=== PATIENT | male | born 1935 | race Caucasian/White ===

== ENCOUNTER → 2016-04-21 | Outpatient (CLI) | payer OTHER ==
[~2016-04-21] MED LIST: CALC-459 PO; CALC625T PO; DUTACAP PO; LATA0.5S OPB; METO50TA16 PO; MIRT1TAB27 PO; POLYSOL4 OPB; PYRI100T4 PO; SIMV1POW PO
[2016-04-21 10:11] LABS: HEMATOCRIT 42.9 % (42-52); MEAN CELL VOLUME 92.7 fL (80-100); MEAN CORPUSCULAR HEMOGLOBIN 30.7 pg (25-34); MEAN CORPUSCULAR HGB CONC 33.1 g/dl (32-36); MEAN PLATELET VOLUME 9.9 fL (7.4-10.4); PLATELET COUNT 224 K/uL (130-400); RED BLOOD COUNT 4.63 M/uL (4.7-6.1); WHITE BLOOD COUNT 6.64 K/uL (4.8-10.8)
[2016-04-21 10:25] LABS: BLOOD UREA NITROGEN 21 mg/dl (7-18); BUN/CREATININE RATIO 19.3 (10-20); CALCIUM 8.4 mg/dl (8.5-10.1); CARBON DIOXIDE 29 mmol/L (21-32); CHLORIDE 107 mmol/L (98-107); GLUCOSE 80 mg/dl (70-99); POTASSIUM 4.2 mmol/L (3.5-5.1); SODIUM 143 mmol/L (136-145)
== END | disposition home or self-care (01) ==
LOC: C.LABFOXMH 09:23
PROVIDERS: ATTEND Internal Medicine
DX: N18.3 Chronic kidney disease, stage 3 (moderate) (principal)

== ENCOUNTER → 2016-08-22 | Outpatient (CLI) | payer OTHER ==
[~2016-08-22] MED LIST changes: +ASPCH81X PO; +CALC625T13 PO; +DUTA0.5C PO; +METO25TA56 PO; +MIRT15TA2 PO; +SENNA PO; +SIMV10TA2 PO; +TAMS0.4C38 PO; +TIMO0.5S2 OPB
[2016-08-22 09:04] LABS: BLOOD UREA NITROGEN 19 mg/dl (7-18); BUN/CREATININE RATIO 15.8 (10-20); CARBON DIOXIDE 30 mmol/L (21-32); CHLORIDE 109 mmol/L (98-107); GLUCOSE 86 mg/dl (70-99); POTASSIUM 4.5 mmol/L (3.5-5.1); SODIUM 145 mmol/L (136-145)
[2016-08-22 09:30] LABS: CALCIUM 8.4 mg/dl (8.5-10.1)
== END | disposition home or self-care (01) ==
LOC: C.LABFOXMH 08:18
PROVIDERS: ATTEND Internal Medicine
DX: I10 Essential (primary) hypertension (principal)

== ENCOUNTER → 2016-12-24 | Outpatient (CLI) | payer OTHER ==
[~2016-12-24] MED LIST changes: -ASPCH81X PO; -CALC625T13 PO; -DUTA0.5C PO; -METO25TA56 PO; -MIRT15TA2 PO; -SENNA PO; -SIMV10TA2 PO; -TAMS0.4C38 PO; -TIMO0.5S2 OPB
[2016-12-24 09:57] LABS: HEMATOCRIT 39.3 % (42-52); MEAN CELL VOLUME 93.6 fL (80-100); MEAN CORPUSCULAR HEMOGLOBIN 31.4 pg (25-34); MEAN CORPUSCULAR HGB CONC 33.6 g/dl (32-36); MEAN PLATELET VOLUME 9.8 fL (7.4-10.4); PLATELET COUNT 218 K/uL (130-400)
[2016-12-24 10:05] LABS: BLOOD UREA NITROGEN 19 mg/dl (7-18); BUN/CREATININE RATIO 19.2 (10-20); CALCIUM 8.3 mg/dl (8.5-10.1); CARBON DIOXIDE 30 mmol/L (21-32); CHLORIDE 108 mmol/L (98-107); GLUCOSE 85 mg/dl (70-99); POTASSIUM 4.1 mmol/L (3.5-5.1); SODIUM 142 mmol/L (136-145)
== END | disposition home or self-care (01) ==
LOC: C.LABFOXMH 09:18
PROVIDERS: ATTEND Internal Medicine
DX: N18.3 Chronic kidney disease, stage 3 (moderate) (principal)

== ENCOUNTER → 2017-01-22 | Day surgery (SDC) | payer OTHER ==
[2017-01-07 14:10] VITALS: Ht 179.1 cm; Wt 73.2 kg
[~2017-01-22] VITALS: Ht 179.1 cm; Wt 73.2 kg
[~2017-01-22] MED LIST changes: +ASPCH81X PO; +BRIMONIDINE TARTRATE 0.2% 5ML OP SCH; +BRIMONIDINE TARTRATE 0.2% 5ML OPL SCH; -CALC-459 PO; -CALC625T PO; +CALC625T13 PO; +DUTA0.5C PO; -DUTACAP PO; +METO25TA56 PO; -METO50TA16 PO; +MIRT15TA2 PO; -MIRT1TAB27 PO; +PILOCARPINE HCL 2% OP SOLN 15 ML BTL ONE; +PILOCARPINE HCL 2% OP SOLN 15 ML BTL OPL SCH; +PROPARACAINE 0.5% OP SOLN PER DROP CHARGE OPL SCH; +PrednisoLONE ACET 1% OP SUSP 5 ML BTL OP SCH; +SENNA PO; +SIMV10TA2 PO; -SIMV1POW PO; +TAMS0.4C38 PO; +TIMO0.5S2 OPB
[2017-01-22 11:46] VITALS: BP 144/89; PULSE 71; O2SAT 98
--- NOTE | 2017-01-22 11:50 | Discharge Instructions-[facility] ---
Discharge Instructions Date of Service Jan 22, 2017. Visit Reason for Visit: Glaucoma Left Eye Discharge Discharge Diagnosis / Problem: glaucoma Discharge Goals Goal(s): Improve disease control Activity Recommendations Activity Limitations: resume your previous activity Anesthesia . Post Anesthesia Instructions: If you have had General Anesthesia or IV Sedation: * Do not drive today. * Resume driving when surgeon permits. * Do not make important decisions or sign legal documents today. * Call surgeon for: 1. Temperature elevations greater than 101 degrees F. 2. Uncontrollable pain. 3. Excessive bleeding. 4. Persistent nausea and vomiting. 5. Medication intolerance (nausea, vomiting or rash). * For nausea and vomiting use only clear liquids such as: tea, soda, bouillon until nausea subsides, then gradually increase diet as tolerated. * If you have any concerns or questions, call your surgeon's office. If physician is unavailable and it is an emergency, call 911 or go to the nearest emergency room. . Instructions / Follow-Up Instructions / Follow-Up ACTIVITY RECOMMENDATIONS: * No limitations RETURN TO SCHOOL/WORK: * No limitations DIET: * No limitations MEDICATIONS: Resume previous medications unless instructed otherwise by your surgeon. * Please use Prednisolone acetate drops prescription given to you at your office appointment as follows: 1 drop in effected eye 4 times a day for 5 days. * Continue all glaucoma drops as usual with no interruption to either eye. SPECIAL CARE INSTRUCTIONS: Call your doctor at with any concerns or problems. FOLLOW UP VISIT: Follow-up with Dr Perez in 1 hour. Diet Recommendations Home Diet: resume previous diet Pending Studies Studies pending at discharge: no Medical Emergencies . Who to Call and When: Medical Emergencies: If at any time you feel your situation is an emergency, please call 911 immediately. . Non-Emergent Contact Non-Emergency issues call your: Customer Pricing Manager . . "Provider Documentation" section prepared by Perez Perez. .
--- NOTE | 2017-01-22 11:51 | [facility] Operative Report ---
Operative Report Date of Service Jan 22, 2017. Operative Report Diagnosis: glaucoma, left eye Procedure: SLT, inferior 180 degrees, 58 spots, 1.5 mJ Complications: none I attest to the content of the Intraoperative Record and any orders documented therein. Any exceptions are noted below.
== END | disposition home or self-care (01) ==
LOC: X.SURG 10:32
PROVIDERS: ATTEND Ophthalmology
DX: H40.9 Unspecified glaucoma (principal); Z95.0 Presence of cardiac pacemaker; Z79.01 Long term (current) use of anticoagulants; Z79.899 Other long term (current) drug therapy

== ENCOUNTER 2022-07-09 05:08 | Observation (INO) ==
--- NOTE | 2022-06-18 14:04 | PAT Medication Instructions ---
Medication Instructions Date of Service June 18, 2022 Home Medications Medication Instructions Recorded furosemide 20 mg tablet 20 mg PO DAILY #90 tabs 01/24/21 apixaban 2.5 mg tablet 2.5 mg PO BID #180 tabs 01/14/22 Wheeled Walker #1 ea 06/12/22 dutasteride 0.5 mg capsule 0.5 mg PO QPM latanoprost 0.005 % eye drops 1 drp ophthalmic (eye) QAM pyridoxine (vitamin B6) 100 mg tablet (Vitamin B-6) 100 mg PO QAM sennosides 8.6 mg tablet (senna) 8.6 mg PO TID simvastatin 10 mg tablet 10 mg PO QPM tamsulosin 0.4 mg capsule 0.4 mg PO QAM timolol maleate 0.25 % eye drops 1 drp ophthalmic (eye) BID cholecalciferol (vitamin D3) 25 mcg (1,000 unit) capsule 1,000 unit PO QAM pramipexole 0.25 mg tablet 0.25 mg PO QPM pantoprazole 40 mg tablet,delayed release 40 mg PO QAM furosemide 20 mg tablet 20 mg PO DAILY metoprolol succinate 50 mg tablet,extended release 24 hr 50 mg PO QAM mirtazapine 7.5 mg tablet 15 mg PO HS apixaban 2.5 mg tablet 2.5 mg PO BID meloxicam 7.5 mg tablet 15 mg PO QAM amino acids 1 tab PO UD cyanocobalamin (vitamin B-12) 1,000 mcg/mL injection solution 0 mcg IM Q4WK Continue as directed amino acids 1 tab PO UD ASK your surgeon for instructions meloxicam 7.5 mg tablet 15 mg PO QAM ASK your prescriber and surgeon apixaban 2.5 mg tablet 2.5 mg PO BID (in order for spinal anesthesia, Apixaban needs to be stopped 72 hours/3 days before surgery. Please check if okay with doctor that prescribes this to you) DO NOT take the morning of surgery pyridoxine (vitamin B6) 100 mg tablet (Vitamin B-6) 100 mg PO QAM sennosides 8.6 mg tablet (senna) 8.6 mg PO TID cholecalciferol (vitamin D3) 25 mcg (1,000 unit) capsule 1,000 unit PO QAM furosemide 20 mg tablet 20 mg PO DAILY cyanocobalamin (vitamin B-12) 1,000 mcg/mL injection solution 0 mcg IM Q4WK Take morning of surgery With a small sip of water, OTHERWISE NOTHING TO EAT OR DRINK AFTER MIDNIGHT: latanoprost 0.005 % eye drops 1 drp ophthalmic (eye) QAM tamsulosin 0.4 mg capsule 0.4 mg PO QAM timolol maleate 0.25 % eye drops 1 drp ophthalmic (eye) BID pantoprazole 40 mg tablet,delayed release 40 mg PO QAM metoprolol succinate 50 mg tablet,extended release 24 hr 50 mg PO QAM Take evening before surgery dutasteride 0.5 mg capsule 0.5 mg PO QPM sennosides 8.6 mg tablet (senna) 8.6 mg PO TID simvastatin 10 mg tablet 10 mg PO QPM timolol maleate 0.25 % eye drops 1 drp ophthalmic (eye) BID pramipexole 0.25 mg tablet 0.25 mg PO QPM mirtazapine 7.5 mg tablet 15 mg PO HS Other Notes If you have any questions please call us at [phone] or [phone] or [phone] or [phone]
--- NOTE | 2022-06-24 13:42 | Anesthesiology Consultation ---
Date of Service June 24, 2022 Assessment & Plan (1) Encounter for pre-operative examination: - awaiting cardiology recommended stress echo and clearance. Workload note sent. Also awaiting finalized EP note (currently in draft) and detailed ICD report. - cardiology 02/11/22 [place]: "...Although he had only nonocclusive disease he is on prior catheterizations, these were over a decade ago. Therefore, if he were to proceed with hip replacement surgery, would first obtain dobutamine stress echocardiogram to reassess current LV systolic function and to exclude interim development of any occlusive coronary artery disease..." - ICD Medtr[employer]. - Outpatient joint assessment: Patient is currently scheduled for inpatient pathway. If re-evaluated pending system levels during current pandemic/surgeon requests outpatient pathway, patient is not acceptable candidate for outpatient joint program from anesthesia standpoint. Chart Review Chart Review: Pending: Refer to Additional Notes / Consult section and Patient seen in Pre Admission Testing Teaching & Discussion Pre-Anesthesia Teaching/Discussion Notes: Instructed NPO after midnight before surgery, except medications with 15 cc of water. Medication instructions provided according to the PAT guidelines. History Surgery Operation Date: 07/09/22 09:05 Proposed Procedures p Right Total Hip Arthroplasty - Mao Green MD Height/Weight Height: 5 ft 11 in Weight: 72.575 kg Allergies Allergy/AdvReac Type Severity Reaction Status Date / Time Sulfa (Sulfonamide AdvReac Mild STOMACH Verified 06/18/22 09:18 Antibiotics) UPSET AT AGE 1 Medications Home Medications Medication Instructions Recorded Confirmed Last Taken dutasteride 0.5 mg capsule 0.5 mg PO QPM 01/18/18 06/18/22 01/19/18 07:30 latanoprost 0.005 % eye drops 1 drp ophthalmic (eye) QAM 01/18/18 06/18/22 04/03/21 pyridoxine (vitamin B6) 100 mg 100 mg PO QAM 01/18/18 06/18/22 04/03/21 tablet (Vitamin B-6) sennosides 8.6 mg tablet (senna) 8.6 mg PO TID 01/18/18 06/18/22 01/19/18 07:30 simvastatin 10 mg tablet 10 mg PO QPM 01/18/18 06/18/22 01/19/18 07:30 tamsulosin 0.4 mg capsule 0.4 mg PO QPM 01/18/18 06/24/22 01/19/18 07:30 timolol maleate 0.25 % eye drops 1 drp ophthalmic (eye) BID 01/18/18 06/18/22 01/19/18 07:30 cholecalciferol (vitamin D3) 25 1,000 unit PO QAM 12/30/18 06/18/22 04/03/21 mcg (1,000 unit) capsule pramipexole 0.25 mg tablet 0.25 mg PO QPM 08/09/19 06/18/22 Unknown pantoprazole 40 mg tablet,delayed 40 mg PO QAM 04/02/20 06/18/22 Unknown release furosemide 20 mg tablet 20 mg PO DAILY #90 tabs 01/24/21 06/18/22 Unknown metoprolol succinate 50 mg 50 mg PO QAM 04/03/21 06/18/22 04/03/21 tablet,extended release 24 hr mirtazapine 7.5 mg tablet 15 mg PO HS 08/22/21 06/18/22 Unknown apixaban 2.5 mg tablet 2.5 mg PO BID #180 tabs 01/14/22 06/18/22 Unknown meloxicam 7.5 mg tablet 15 mg PO QAM 02/11/22 06/18/22 Unknown Wheeled Walker #1 ea 06/12/22 06/12/22 Unknown amino acids 1 tab PO UD 06/18/22 06/18/22 Unknown cyanocobalamin (vitamin B-12) 0 mcg IM Q4WK 06/18/22 06/18/22 Unknown 1,000 mcg/mL injection solution lisinopril 5 mg tablet 5 mg PO QAM 06/24/22 06/24/22 Unknown Additional Notes: Pt reported taking lisinopril 5 mg QAM and clarified that tamsulosin is taken in the evening. These were added/adjusted in EMR. He was instructed NOT taking lisinopril day of surgery and to continue tamsulosin like usual. These instructions were also written on provided medication instructions. He verbalized full understanding and agreement, denied questions, concerns or additional medications. 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 Exercise / Class Metabolic Activity III < 4 Walking/Shop/Light housework (ambulates with cane, SOB with usual activities, denies chest discomfort; TELLO ongoing x 7-8 months) Past Family History Family History Family/Other Family history of diabetes mellitus Past Surgical History Surgical History History of appendectomy History of cataract surgery RT/LEFT History of cholecystectomy History of colonoscopy History of eye surgery RT/LEFT EYE "TO SMOOTH OUT EYE" History of tonsillectomy History of tooth extraction Hx of transurethral resection of prostate Hx of vasectomy Past Anesthesia History No Hx of Anesthesia Complications and No Family Hx of Anesthesia Complications History of PONV No Hx of PONV and No Hx of Motion Sickness Social History Smoking Status: Never smoker Do You Dip or Chew Tobacco: No Hx Alcohol Use: No Hx Substance Use: No substance use type: does not use Review of Systems Patient denies chest pain, fever, chills, cough, wheezing, or palpitations. Physical Exam Vital Signs Vitals BP 124/74 P 59 TEMP 98.2 SP02 96% on RA RESP 17 Physical Full cervical extension range of motion without pain TMD 3.5 finger breadths Mallampati Score 2 Dentition: full lower dentures; denies chipped or loose teeth Lungs: normal respiratory effort. Clear throughout to auscultation, no adventitious breath sounds Cardiac: regular rate and rhythm, no murmurs noted Carotid arteries: negative bruit bilat Lab Results Anesthesia Preop Results Results Anesthesia Widget: WBC 7.28 K/ul (4.8-10.8) 06/24/22 Hgb 11.6 g/dl (14.0-18.0) L 06/24/22 Hct 35.9 % (42.0-52.0) L 06/24/22 Plt 212 K/uL (130-400) 06/24/22 Na 142 mmol/L (136-145) 06/24/22 K 4.4 mmol/L (3.5-5.1) 06/24/22 Cl 108 mmol/L (98-107) H 06/24/22 CO2 30 mmol/L (21-32) 06/24/22 BUN 42 mg/dl (6-23) H 06/24/22 Creat 1.35 mg/dl (0.6-1.4) 06/24/22 Glucose Level 109 mg/dl (70-99(Fasting)) H 06/24/22 PT 12.0 Seconds (9.0-12.0) 06/24/22 PTT 33.4 Seconds (21.0-31.0) H 06/24/22 INR 1.1 (0.9-1.1) 06/24/22 Blood Type O Positive 06/24/22 Antibody Screen NEGATIVE 06/24/22 Testing Electrocardiogram Date: 06/24/22 AV dual paced rhythm, rate 60 bpm Chest X-Ray Date: 06/24/22 A 3-lead cardiac AICD is unchanged in position and partially obscures the left upper chest. The heart is enlarged and noting atherosclerotic calcification of the thoracic aorta. The pulmonary vasculature is noncongested. Chronic interstitial thickening similar to previous. There is mild bibasilar scarring/atelectasis. The lungs and pleural spaces are otherwise clear. There is no pneumothorax. The skeletal structures are osteopenic. The bony thorax appears intact. Surgical clips are noted in the upper abdomen. IMPRESSION: 1. Cardiomegaly and AICD without radiographic evidence of congestive failure. 2. No airspace consolidation or pleural effusion is identified. Echocardiogram Date: 12/11/20 EF 45-50% Mild global hypokinesis Mild LA dilation Mild mitral regurgitation Moderate tricuspid regurgitation Mild to moderate pulmonary hypertension, RVSP 47-59 mmHg Type 2 diastolic dysfunction Other Testing Carotid 08/27/20 Mild to moderate atherosclerotic plaque within the proximal bilateral internal carotid arteries, greater on the left. No evidence for a hemodynamically significant stenosis. COVID-19 Risk Screen Screening Information COVID-19 Screen Date: 06/24/22 Exposure 21 Days Family/Household +COVID Last 21 Days: No Exposure 10 Days Any COVID Exposure Last 10 Days: No Symptoms Last 10 Days Experienced COVID Sx Last 10 Days: No + COVID 0-90 Days COVID + in Last 0-90 Days: No
[2022-07-09] MEDS ORDERED: LR 500ML BOLUS, THEN 15ML/HR IV SCH (06:00)
[2022-07-09] MEDS ORDERED: ACETAMINOPHEN 500 MG TAB PO SCH (06:00)
[2022-07-09] MEDS ORDERED: dexAMETHasone**PF** 10 MG/ML VIAL IV SCH (06:00)
[2022-07-09] MEDS ORDERED: METOCLOPRAMIDE HCL 10 MG TABLET PO SCH (06:00)
[2022-07-09] MEDS ORDERED: FAMOTIDINE 20 MG TAB PO SCH (06:00)
[2022-07-09] MEDS ORDERED: LR 60ML/HR IV SCH (06:00)
[2022-07-09] MEDS ORDERED: ceFAZolin 2000MG 2,000 MG/15 ML SYR IV SCH (06:00)
[2022-07-09] MEDS ORDERED: TRANEXAMIC ACID 1,000 MG **IV Pre-op IV SCH (06:00)
[2022-07-09] MEDS ORDERED: CeleBREX 200 MG CAP PO SCH (06:00)
[2022-07-09] MEDS ORDERED: BUPIVACAINE LIPOSOME/PF 266 MG, BUPIVACAINE/EPINEPHRINE 50 ML, SODIUM CHLORIDE 0.9% PF ... INFIL SCH (06:00)
[2022-07-09] MEDS ORDERED: ROPIVACAINE 0.5% 5 MG/ML 30 ML VIAL ONE (06:18)
[2022-07-09] MEDS ORDERED: fentaNYL citrate PF 100 MCG/2 ML VIAL IV PRN (06:39)
[2022-07-09] MEDS ORDERED: ATROPINE SULFATE 0.1 MG/ML 10ML SYR IV PRN (06:39)
[2022-07-09] MEDS ORDERED: ONDANSETRON INJ 2 MG/ML 2 ML VIAL IV PRN ×2 (06:39→10:38)
[2022-07-09] MEDS ORDERED: ePHEDrine sulfate 50 MG/ML AMP IV PRN (06:39)
[2022-07-09] MEDS ORDERED: MIDAZOLAM HCL 1 MG/ML 2ML VIAL ONE (06:42)
[2022-07-09] MEDS ORDERED: fentaNYL citrate PF 100 MCG/2 ML VIAL ONE (06:45)
[2022-07-09] MEDS ORDERED: BUPIVACAINE 0.5 % 5 MG/1 ML PF 10ML VIAL ONE (06:46)
--- NOTE | 2022-07-09 06:53 | History & Physical Bridge Note ---
Date of Service July 09, 2022 History & Physical Bridge Note I have examined the patient, reviewed the History & Physical and in the interval since the performance of the History & Physical I have noted the following changes of clinical significance: no changes noted
[2022-07-09] MEDS ORDERED: BUPIVACAINE/EPINEPHRINE 0.5% MPF 1:200,000 30 ML VIAL ONE (06:56)
[2022-07-09] MEDS ORDERED: DEXAMETHASONE SOD INJ 4 MG/ML VIAL ONE (07:28)
[2022-07-09] MEDS ORDERED: PROPOFOL IV EMULSION 10 MG/ML 20 ML VIAL IV ONE ×2 (07:28→07:38)
[2022-07-09] MEDS ORDERED: ONDANSETRON INJ 2 MG/ML 2 ML VIAL ONE (07:28)
[2022-07-09] MEDS ORDERED: ePHEDrine sulfate 50 MG/ML AMP ONE (07:28)
--- NOTE | 2022-07-09 08:38 | Operative Report ---
[facility] Post Operative Report Pre & Post Diagnosis Operation Date: 07/09/22 07:00 Pre-Op Diagnosis: Right Hip Degenerative Joint Disease Post-Op Diagnosis: Right Hip Degenerative Joint Disease I identified the patient and participated in the time-out.: Yes Procedure Operation Date: 07/09/22 07:00 Actual Procedures p Right Total Hip Arthroplasty(Right) - Mao Green MD Surgeon Mao Green MD [employer] Sheets Supervisor Blayne Vance PA-C Estimated Blood Loss 200 Findings Consistent with Post-Op Diagnosis Operative findings real advanced right hip DJD. He had extensive grade 4 [id number] disease of the femoral head and acetabulum. Moderate-sized joint effusion. Fluids 600 cc Specimens Right femoral head sent for pathology Anesthesia Type Spinal MAC Complications none Disposition Accompanied Patient To Recovery: No Indications Patient is an 86-year-old gentleman has had a several year history of increasing right hip pain discomfort that she has become more capacity over time. Been to extensive conservative care which just became less successful. X-rays show advanced right hip arthritis. He was medically optimized and elected proceed with total hip arthroplasty. Description of Procedure Operative implants consist of: 1 Biomet G7 size 58 mm acetabular shell. 2. Moosic hole eliminator. 3. 6.5 cancellous acetabular screws 1 of 35 mm length 1 of 30 mm length. 4. Highly cross-linked polyethylene liner with a 58 mm outer diam and 40 mm diameter. 5. DePuy Corail size 12 KLA femoral stem. 6. +5/40 mm ceramic articular ball. The patient was taken the operating, identified, placed on the operating table supine position protectors were properly padded. IV antibiotics tried by anesthesia team. A spinal anesthetic been implemented holding area. We attempted to place a Angel catheter but could not get it to thread the whole way through so we elected not to use this and proceed with straight catheter postop if needed. The patient was then placed in the left lateral cubitus position. An axillary roll was placed. Stulberg hip positioner was used for positioning. The right hip and leg were then prepped and draped in usual sterile fashion. A posterolateral approach to the right hip was then performed to a curvilinear incision centered over the greater trochanter. Sharp dissection was carried through subcutaneous tissue down to level the IT band gluteal fascia the IT band gluteal fascia incised longitudinally in line with skin incision. The underlying greater bursa was excised. The piriformis and external rotators along with the posterior hip joint capsule were then released from the posterior aspect hip as a single layer. Hip was internally rotated and dislocated. A femoral neck osteotomy cut was made with a Final Cut about 15 mm above the lesser trochanter. Femoral head was removed and sent for pathology. The femur was retracted anteriorly. Attention drawn the acetabulum. The acetabular labrum was excised. The pulmonary fat was excised. Sequential reaming of the acetabulum was then performed again with size 45 and progressing up to 57. I then reamed a little bit with a 58 reamer and then placed a 58 mm acetabular shell in about 40 degrees lateral opening and 20 degrees of anteversion. It was fixed with two 6.5 cancellous acetabular screws. A trial liner was placed. Attention drawn the femur. The proximal femur was then with a 9facts cutter followed by canal finder. I then broached begin the size 8 and progressing up to a 12. Got excellent fit at a 12 . We trialed the hip and the +5 articular ball seem to recreate appropriate stability, soft tissue tension and equal leg lengths. I did elect to use a 40 mm head just to maximize his stability considering his age. We elect to place these implants. All trial implants were removed. An apex eliminator was placed. Highly cross- linked polyethylene liner was placed. A size 12 KLA femoral stem was impacted in position. +5/40 mm ceramic articular ball was placed. Hip was located and once again found to be stable. Attention drawn toward closing. The wounds irrigated cosigns pulsatile lavage solution. The posterior capsule and external rotators were repaired through drill holes in the posterior trochanter with #2 Tycron suture. The IT band gluteal fascia then closed in 1 PDS suture running fashion for subcutaneous tissues then closed with 2 layers the deep layer #1 Vicryl suture subcutaneous tissues with 2-0 Dexon suture in a buried interrupted fashion. Skin was closed skin tabitha. Leg was then cleaned and dried and sterile dressed with Xeroform, 4 fours, sterile ABD pad, foam tape was applied. Patient then transferred to the recovery room in stable condition. Patient tolerated procedure well and there were no complications. Blayne Vance, my physician miner assistant, was present for the entire procedure. His assistance was essential and required for appropriate patient positioning, prepping and draping, surgical exposure, performing the technical details of the operation, placement the implants, closure of the wound, and placement of the sterile bandage. I attest to the content of the Intraoperative Record and any orders documented therein. Any exceptions are noted below.
--- NOTE | 2022-07-09 09:22 | XRay Report ---
AP PELVIS, CROSSTABLE LATERAL RIGHT HIP History: Right total hip arthroplasty. Degenerative arthritis. Postop. FINDINGS: The patient is status post a right total hip arthroplasty. The hardware is intact. No fract ure or dislocation. Skin tabitha are in place. IMPRESSION: Right total hip arthroplasty. No evidence for hardware complication ACT 112: Negative or not required by law. Electronically signed by: Jeremiah Guido M.D. 07/09/2022 9:21 AM
--- NOTE | 2022-07-09 09:34 | Anesthesiology Progress Note ---
Date of Service July 09, 2022 Anesthesia Post Procedure Vital Signs Vital Signs: Temp Pulse Pulse Resp BP BP Pulse Ox 07/09/22 09:25 60 19 130/73 99 07/09/22 09:15 60 17 126/74 100 07/09/22 09:05 97.5 F L 60 18 124/71 100 07/09/22 08:55 60 17 123/75 100 07/09/22 08:45 61 17 124/75 100 07/09/22 08:35 60 19 114/68 100 07/09/22 08:25 97.7 F 60 20 110/60 99 07/09/22 06:05 97.5 F L 76 18 153/94 H 96 O2 Del Method O2 Flow Rate 07/09/22 09:25 Room Air 07/09/22 09:15 Oxymask 2 07/09/22 09:05 Oxymask 4 07/09/22 08:55 Oxymask 6 07/09/22 08:45 Oxymask 7 07/09/22 08:35 Oxymask 7 07/09/22 08:25 Oxymask 7 07/09/22 06:05 Room Air Transfer of Care Handoff Completed per policy Notes Mental Status: alert / awake / arousable and participated in evaluation Patient Amnestic to Procedure: Yes Nausea / Vomiting: adequately controlled Pain: adequately controlled Airway Patency, RR, SpO2: stable & adequate BP & HR: stable & adequate Hydration State: stable & adequate Neuraxial Anesthesia: was administered and sensory block is resolving Anesthetic Complications: no major complications apparent and Pt Satisfied with anesthetic care
[2022-07-09] MEDS ORDERED: MAGNESIUM HYDROXIDE SUSP 30 ML UDC PO PRN (10:38)
[2022-07-09] MEDS ORDERED: METOCLOPRAMIDE HCL INJ 5 MG/ML 2 ML VIAL IV PRN (10:38)
[2022-07-09] MEDS ORDERED: FUROSEMIDE 20 MG TAB PO PRN (10:38)
[2022-07-09] MEDS ORDERED: traMADol HCL 50 MG TABLET PO PRN (10:38)
[2022-07-09] MEDS ORDERED: HYDROmorphone INJ 0.5 MG/0.5 ML SYR IV PRN (10:38)
[2022-07-09] MEDS ORDERED: NON-FORMULARY MEDICATION (Amino Acids Tablet) PO SCH (10:38)
[2022-07-09] MEDS ORDERED: bisacodyL 10 MG SUPP PR PRN (10:38)
[2022-07-09] MEDS ORDERED: NALOXONE HCL 0.4 MG/1 ML VIAL/CARP IV PRN (10:38)
[2022-07-09] MEDS ORDERED: ALUMINUM/MAGNESIUM SUSP 30 ML UDC PO PRN (10:38)
--- NOTE | 2022-07-09 11:00 | Hospitalist Consultation ---
Date of Consultation July 09, 2022 Assessment & Plan (1) CAD (coronary artery disease): Right hip replacement Per operative report: No complications. Estimated 200 cc blood loss, 600 cc fluid given intraoperatively. On Eliquis for DVT prophylaxis Sensation slowly improving in right foot, starting with right fifth digit. Dorsiflexion 5/5, plantarflexion qualitatively weak 4 -/5 but improving with time Management per primary team A-fib Continue Eliquis twice daily Preoperative EKG: AV dual paced rhythm, QTc 480. Continue metoprolol 50 mg succinate daily Ischemic cardiomyopathy, heart failure with reduced ejection fraction 30-35% Dobutamine stress echo 07/04/2022: Inferior wall wall motion abnormality suggestive of ischemia, poor overall image quality. EF 30-35%. Paced rhythm limiting EKG. Per cardiology preop: 3-day apixaban hold, then resume postop as soon as possible. Euvolemic with dry weight of 158 pounds [facility]ING [facility]. Acute interventions including stenting of the RCA to improve limited area of inferior ischemia was not felt to confer mortality benefit and would require dual antiplatelet treatment, therefore cardiac intervention was not recommended and was felt to be reasonable to proceed with hip replacement surgery acknowledging somewhat increased risk of perioperative complications due to age/mildly abnormal dobutamine stress test, EF 30-35%, valvular heart disease/pulmonary hypertension. Postoperatively doing well. No chest pain, no signs of decompensation. Eu volemic. Continue on telemetry, rate is paced in the 60s without signs of NSVT. Optimize magnesium 2.0, potassium 4.0. Preop potassium was 4.4, magnesium not available. Morning labs and updated magnesium pending. Continue lisinopril 5 mg every morning No history of stents/antiplatelets, is on DOAC. Continue Continue metoprolol 50 mg every morning succinate Lasix 20 mg p.o. daily as needed for fluid retention, appears euvolemic at bedside and has not required today. May resume this daily tomorrow, would take if weight is increasing, patient develops any orthopnea, or has significant leg swelling. Low-salt diet. LUTS Continue tamsulosin/dutasteride home dosing Bladder scan every shift, straight cath for retention DVT prophylaxis: Eliquis Diet: Heart healthy, low-salt Disposition: Monitoring on med/surgical with telemetry due to history of ischemic cardiomyopathy CODE STATUS: Full code (2) Paroxysmal ventricular tachycardia: (3) Paroxysmal A-fib: History of Present Illness Attending Physician: Mao Green MD History of Present Illness Cristian is an 86-year-old male with a history of NSVT/paroxysmal VT with ICD, CAD, paroxysmal A-fib, central sleep apnea Per PCP note review: History of ischemic cardiomyopathy with mild abnormalities on dobutamine stress preop echo, pulmonary hypertension with mild aortic regurg and mild to moderate mitral regurg, moderate TR, RVSP greater than 60 and no preoperative shortness of breath or chest pain. A-fib paroxysmal on Eliquis which was stopped 3 days prior to procedure and recommended to resume soon as possible postoperatively. Medication review: Eliquis 2.5 mg twice daily, timolol eyedrops daily, meloxicam 15 mg daily for OA pain which has been held, simvastatin 10 mg daily, mirtazapine 15 mg daily, dutasteride 0.5 mg and tamsulosin 0.4 mg daily, metoprolol succinate 50 mg daily, lisinopril 5 mg daily, Protonix 40 mg daily, pramipexole 0.25 mg nightly, XL 10 eyedrops daily. Cristian is seen at the bedside postoperatively. He reports he feels well, is eating lunch. He reports he has no pain, still has some numbness in his right foot but sensation is slowly coming back starting with the right fifth digit. No pain in his knee. He has no chest pain, chest pressure, shortness of breath, or difficulty breathing. No lightheadedness or dizziness. No sore throat. Overall he feels "great "and has no acute questions or concerns. He reports he did take his medications as directed, Eliquis has been held for 3 days per prior notation, and anticipates restarting this postoperatively. He denies any bleeding. No nausea/vomiting/abdominal pain. Comfortable, no additional qu estions at bedside Medical History: Reviewed Medications: Reviewed Surgical History: Reviewed Family history: Reviewed Allergies: Reviewed Social History: Reviewed Code Status: Full code Allergies Allergy/AdvReac Type Severity Reaction Status Date / Time Sulfa (Sulfonamide AdvReac Mild STOMACH Verified 07/09/22 05:56 Antibiotics) UPSET AT AGE 1 Home Medications Medication Instructions Recorded Confirmed Type dutasteride 0.5 mg capsule 0.5 mg PO QPM 01/18/18 07/09/22 History (Avodart) latanoprost 0.005 % eye drops 1 drp ophthalmic (eye) QAM 01/18/18 07/09/22 History pyridoxine (vitamin B6) 100 mg 100 mg PO QAM 01/18/18 07/09/22 History tablet (Vitamin B-6) sennosides 8.6 mg tablet (senna) 8.6 mg PO TID 01/18/18 07/09/22 History simvastatin 10 mg tablet 10 mg PO QPM 01/18/18 07/09/22 History tamsulosin 0.4 mg capsule 0.4 mg PO QPM 01/18/18 07/09/22 History timolol maleate 0.25 % eye drops 1 drp ophthalmic (eye) BID 01/18/18 07/09/22 History cholecalciferol (vitamin D3) 25 1,000 unit PO QAM 12/30/18 07/09/22 History mcg (1,000 unit) capsule pramipexole 0.25 mg tablet 0.25 mg PO QPM 08/09/19 07/09/22 History (Mirapex) pantoprazole 40 mg tablet,delayed 40 mg PO QAM 04/02/20 07/09/22 History release (Protonix) metoprolol succinate 50 mg 50 mg PO QAM 04/03/21 07/09/22 History tablet,extended release 24 hr mirtazapine 7.5 mg tablet 15 mg PO HS 08/22/21 07/09/22 History Wheeled Walker #1 ea 06/12/22 07/03/22 Rx amino acids 1 tab PO UD 06/18/22 07/09/22 History cyanocobalamin (vitamin B-12) 0 mcg IM Q4WK 06/18/22 07/09/22 History 1,000 mcg/mL injection solution lisinopril 5 mg tablet 5 mg PO QAM 06/24/22 07/09/22 History meloxicam 7.5 mg tablet 7.5 mg PO QAM 07/03/22 07/09/22 History acetaminophen 500 mg tablet 1,000 mg PO TID pain 30 days #180 07/07/22 07/09/22 Rx (Tylenol Extra Strength) tabs ondansetron 4 mg disintegrating 4 mg PO Q8 PRN nausea #20 tabs 07/07/22 07/09/22 Rx tablet sennosides 8.6 mg tablet (Senokot) 8.6 mg PO BID prevent constipation 07/07/22 07/09/22 Rx 14 days #28 tabs tramadol 50 mg tablet 50 - 100 mg PO Q6 PRN pain #40 tabs 07/07/22 07/09/22 Rx acetaminophen 325 mg tablet 325 mg PO QID PRN Pain 07/09/22 07/09/22 History (Tylenol) apixaban 2.5 mg tablet (Eliquis) 2.5 mg PO BID 07/09/22 07/09/22 History furosemide 20 mg tablet (Lasix) 20 mg PO DAILY PRN Fluid Retention 07/09/22 07/09/22 History Patient History Medical History (Updated 07/09/22 @ 05:56 by Natalie Liu RN) BPH (benign prostatic hyperplasia) CAD (coronary artery disease) 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 Cardiomyopathy Central sleep apnea denies GERD (gastroesophageal reflux disease) controlled, stable per pt Glaucoma Gout Heart failure History of CHF (congestive heart failure) Hyperlipidemia Hypertension controlled, stable per pt ICD (implantable cardioverter-defibrillator) in place NSVT, follows with [facility] Non-Hodgkin lymphoma Pulmonary hypertension Mild to moderate pulmonary hypertension, RVSP 47-59 mmHg on 2020 echo Surgical History History of appendectomy History of cataract surgery RT/LEFT History of cholecystectomy History of colonoscopy History of eye surgery RT/LEFT EYE "TO SMOOTH OUT EYE" History of tonsillectomy History of tooth extraction Hx of transurethral resection of prostate Hx of vasectomy Family History Family/Other Family history of diabetes mellitus Social History Smoking Status: Never smoker Second Hand Exposure: Yes (IN THE PAST); Do You Dip or Chew Tobacco: No; Tobacco Cessation Education Requested by Patient: No Hx Alcohol Use: No Hx Substance Use: No Preferred Language: [place] Communication Ability: Effective 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 NAD. Cooperative. HEENT: Atraumatic, normocephalic. Vision/hearing intact Pulm: CTAB A&P. -wheezes, -rales, -rhonchi. Symmetrical chest rise. No increased work of breathing. No respiratory distress. Cardiac: RRR, +sm. Radial pulses intact and symmetrical. Abdominal: Nontender, nondistended, soft. BS present. Extremities: Right lower leg in postoperative dressing. Sensation to soft touch intact in toes bilaterally, diminished sensation in right digits 14, but improving with time. Plantarflexion 5/5 bilaterally, dorsiflexion 5/5 left 4 - /5 on the right but improving with time. PT pulse intact bilaterally Results & Data Results & Data Vital Signs (Past 12 Hours) Vital Signs Temp Pulse Pulse Resp BP BP Pulse Ox 07/09/22 10:41 36.4 C L 60 18 136/84 100 07/09/22 10:15 61 20 131/75 98 07/09/22 10:05 60 20 122/70 94 07/09/22 09:55 60 18 125/72 96 07/09/22 09:45 36.5 C 60 20 126/73 94 07/09/22 09:35 60 18 125/73 96 07/09/22 09:25 60 19 130/73 99 07/09/22 09:15 60 17 126/74 100 07/09/22 09:05 36.4 C L 60 18 124/71 100 07/09/22 08:55 60 17 123/75 100 07/09/22 08:45 61 17 124/75 100 07/09/22 08:35 60 19 114/68 100 07/09/22 08:25 36.5 C 60 20 110/60 99 07/09/22 06:05 36.4 C L 76 18 153/94 H 96 O2 Del Method O2 Flow Rate 07/09/22 10:41 Room Air 07/09/22 10:15 Room Air 07/09/22 10:05 Room Air 07/09/22 09:55 Room Air 07/09/22 09:45 Room Air 07/09/22 09:35 Room Air 07/09/22 09:25 Room Air 07/09/22 09:15 Oxymask 2 07/09/22 09:05 Oxymask 4 07/09/22 08:55 Oxymask 6 07/09/22 08:45 Oxymask 7 07/09/22 08:35 Oxymask 7 07/09/22 08:25 Oxymask 7 07/09/22 06:05 Room Air PG Care Time/CCT Total # of Minutes Spent Total Time Spent with Patient: Total time spent is greater than 50% in coordination of care (as documented) at patient's floor/unit and/or counseling patient: Coding Level of Care Code 63269 IN/OBS CONSULT LVL 4,60M Diagnoses CAD (coronary artery disease) I25.10 Coronary Disease-Associated Artery/Lesion type: [place] artery [place] vs. transplanted heart: [place] heart Associated angina: without angina Paroxysmal ventricular tachycardia I47.2 Paroxysmal A-fib I48.0 (1) CAD (coronary artery disease) Coronary Disease-Associated Artery/Lesion type: [place] artery [place] vs. transplanted heart: [place] heart Associated angina: without angina Qualified Code(s): I25.10 - Atherosclerotic heart disease of [place] coronary artery without angina pectoris
[2022-07-09] MEDS: CHOLECALCIFEROL 1,000 UNITS 25 MCG TAB PO SCH (11:34)
[2022-07-09] MEDS: DOCUSATE SODIUM 100 MG CAP PO SCH ×2 (11:34→20:59)
[2022-07-09] MEDS: MULTIVITAMIN TAB PO SCH (11:34)
[2022-07-09] MEDS: PANTOprazole 40 MG TAB PO SCH (11:34)
[2022-07-09] MEDS: LATANOPROST 0.005% OP SOLN 2.5 ML BTL OP SCH (11:35)
[2022-07-09] MEDS: PYRIDOXINE HCL 50 MG TAB PO SCH (11:35)
[2022-07-09] MEDS: lisinopril 5 MG TAB PO SCH (11:35)
[2022-07-09] MEDS: METOPROLOL SUCC 50MG EXT REL TAB PO SCH (11:35)
[2022-07-09] MEDS: TIMOLOL GFS 0.5% OPH SOLN 74 DROPS/5 ML BTL OP SCH ×2 (11:37→21:02)
[2022-07-09] MEDS: ACETAMINOPHEN 500 MG TAB PO SCH ×3 (11:38→21:03)
[2022-07-09] MEDS: SODIUM CHLORIDE 0.9% 1000ML 1,000 ML IV SCH ×2 (12:08→22:22)
[2022-07-09] MEDS: DUTASTERIDE 0.5 MG SCH ×2 (12:10→15:22)
[2022-07-09] MEDS: SENNA 8.6 MG TAB PO SCH ×2 (12:36→21:00)
[2022-07-09] MEDS ORDERED: TRANEXAMIC ACID / 0.7% NACL 1,000 MG/100 ML BAG IV SCH (14:30)
[2022-07-09] MEDS: ceFAZolin 1000MG 1,000 MG/7.5 ML SYR IV SCH ×2 (14:46→22:22)
[2022-07-09 14:47] LABS: BUN Creatinine Ratio 19.6 (10-20); Calcium 8.7 mg/dl (8.6-10.3); Creatinine Clr Calc Pharmacy 38.7 ml/min; Est GFR (African American) 52.5 ml/min; Est GFR (Non-African American) 45.3 ml/min; Magnesium 1.8 mg/dl (1.7-2.4); Potassium 4.3 mmol/L (3.5-5.1)
[2022-07-09] MEDS: ASCORBIC ACID 500 MG TAB PO SCH (16:56)
[2022-07-09] MEDS ORDERED: PRAMIPEXOLE DIHYDROCHLO 0.25 MG TAB PO SCH (21:00)
[2022-07-09] MEDS ORDERED: TAMSULOSIN HCL 0.4 MG CAP PO SCH (21:00)
[2022-07-09] MEDS ORDERED: SENNA 8.6 MG TAB PO SCH (21:00)
[2022-07-09] MEDS ORDERED: SIMVASTATIN 10 MG TAB PO SCH (21:00)
[2022-07-09] MEDS ORDERED: MIRTAZAPINE TAB 15 MG TAB PO SCH (21:00)
[2022-07-09] MEDS ORDERED: MELATONIN 3 MG TAB PO PRN (21:34)
[2022-07-10] MEDS: DUTASTERIDE 0.5 MG SCH ×2 (00:10→09:00)
[2022-07-10] MEDS ORDERED: dexAMETHasone 4 MG TAB PO SCH (08:00)
[2022-07-10 08:23] LABS: Basophils # (auto) 0.02 K/uL (0-0.2); Basophils % (auto) 0.1 %; Hematocrit (blood only) 32.1 % (42.0-52.0); Hemoglobin 10.4 g/dl (14.0-18.0); Immature Granulocytes # (auto) 0.11 K/uL (0.01-0.20); Immature Granulocytes % (auto) 0.7 %; Lymphocytes # (auto) 1.12 K/uL (1.2-3.4); Lymphocytes % (auto) 7.6 %; Mean Corpuscular Hemoglobin 32.4 pg (25.0-34.0); Mean Corpuscular Hgb Conc 32.4 g/dL (32.0-36.0); Mean Platelet Volume 9.6 fL (9.4-12.4); Monocytes # (auto) 1.67 K/uL (0.11-0.59); Monocytes % (auto) 11.3 %; Neutrophils # (auto) 11.89 K/uL (1.40-6.50); Neutrophils % (auto) 80.3 %; Platelet Count 203 K/uL (130-400); RDW Coefficient of Variation 13.7 % (11.5-14.5); RDW Standard Deviation 50.3 fL (36.4-46.3); Red Blood Count 3.21 M/uL (4.70-6.10); White Blood Count 14.81 K/ul (4.8-10.8)
[2022-07-10 08:39] LABS: BUN Creatinine Ratio 23.8 (10-20); Calcium 8.2 mg/dl (8.6-10.3); Creatinine Clr Calc Pharmacy 41.5 ml/min; Est GFR (African American) 58.2 ml/min; Est GFR (Non-African American) 50.2 ml/min; Magnesium 1.8 mg/dl (1.7-2.4); Potassium 4.4 mmol/L (3.5-5.1)
[2022-07-10] MEDS: ASCORBIC ACID 500 MG TAB PO SCH (08:57)
[2022-07-10] MEDS: METOPROLOL SUCC 50MG EXT REL TAB PO SCH (08:57)
[2022-07-10] MEDS: CHOLECALCIFEROL 1,000 UNITS 25 MCG TAB PO SCH (08:58)
[2022-07-10] MEDS: lisinopril 5 MG TAB PO SCH (08:58)
[2022-07-10] MEDS: PYRIDOXINE HCL 50 MG TAB PO SCH (08:58)
[2022-07-10] MEDS: SENNA 8.6 MG TAB PO SCH (08:59)
[2022-07-10] MEDS: DOCUSATE SODIUM 100 MG CAP PO SCH (08:59)
[2022-07-10] MEDS: PANTOprazole 40 MG TAB PO SCH (08:59)
[2022-07-10] MEDS: LATANOPROST 0.005% OP SOLN 2.5 ML BTL OP SCH (09:00)
[2022-07-10] MEDS ORDERED: APIXABAN 2.5 MG TAB PO SCH (09:00)
[2022-07-10] MEDS: TIMOLOL GFS 0.5% OPH SOLN 74 DROPS/5 ML BTL OP SCH (09:00)
--- NOTE | 2022-07-10 09:01 | Hospitalist Progress Note ---
Date of Service July 10, 2022 Assessment & Plan (1) Degenerative joint disease of right hip: Plan: Right hip replacement Per operative report: No complications. Estimated 200 cc blood loss, 600 cc fluid given intraoperatively. - On Eliquis for DVT prophylaxis - Pain Management per primary team - Continue bowel regimen per primary team (2) CAD (coronary artery disease): Plan: Ischemic cardiomyopathy, heart failure with reduced ejection fraction 30-35% - Dobutamine stress echo 07/04/2022: Inferior wall wall motion abnormality suggestive of ischemia, poor overall image quality. EF 30-35%. Paced rhythm limiting EKG. Per cardiology preop: 3-day apixaban hold, then resume postop as soon as possible. (restarted today 07/10/22) Acute interventions including stenting of the RCA to improve limited area of inferior ischemia was not felt to confer mortality benefit and would require dual antiplatelet treatment, therefore cardiac intervention was not recommended and was felt to be reasonable to proceed with hip replacement surgery acknowledging somewhat increased risk of perioperative complications due to age/mildly abnormal dobutamine stress test, EF 30-35%, valvular heart disease/pulmonary hypertension. - Postoperatively doing well. No chest pain, no signs of decompensation. Euvolemic. Rate is paced in the 60s without signs of NSVT. - K 4.4, Mg 1.8 - Continue lisinopril 5 mg every morning - No history of stents/antiplatelets, is on DOAC. Continue - Continue metoprolol 50 mg q AM - Lasix 20 mg p.o. daily as needed for fluid retention, appears euvolemic at bedside and has not required today. Continue Low-salt diet. weight stable 73.9 Kg (3) Paroxysmal A-fib: Plan: Chronic and stable - Resumed Eliquis twice daily today - Continue metoprolol 50 mg succinate daily (4) Lower urinary tract symptoms (LUTS): Plan: Chronic and stable - Continue tamsulosin - Continue dutasteride home dosing - Bladder scan q shift, straight cath for retention Plan DVT prophylaxis: Eliquis Diet: Heart healthy, low-salt Disposition: Patient being discharged to home later today CODE STATUS: Full code Admission and Anticipated Discharge Date Admission Date: July 09, 2022 Supervising Physician Co-Signing Physician Notes PA Supervision Note: I did not personally see or examine the patient today, but I verified all antonio points of FITO Escobar's assessment and plan with the following exceptions/additions: Would recommend AGAINST taking NSAIDs with ELiquis but defer to PCP Subjective Patient was sitting up in recliner eating his lunch. He states he feels great. He is passing flatus but no BM. No nausea or vomiting and tolerating diet. He has been up and walking. He tells me that he is to be discharged home later today. post op day #1 Right hip replacement Estimated 200 cc blood loss, 600 cc fluid given intraoperatively. Continues on Eliquis for DVT prophylaxis Review of Systems Constitutional: no fever, no chills and no anorexia Respiratory: no cough, no chest congestion and no dyspnea Cardiovascular: no chest pain, no lightheadedness, no syncope and no calf pain Gastrointestinal: no abdominal pain, no nausea and no vomiting Integumentary: no rash, no lesions and no new lesions Neurologic: no unsteadiness, no paralysis, no numbness and no paresthesia Physical Exam Constitutional: WD/WN, vitals as above Neck: trachea midline, no thyromegaly Respiratory: normal respiratory effort, lungs clear to auscultation Cardiovascular: RRR, no murmur, no edema Gastrointestinal (Abdomen): normal bowel sounds, soft, nontender, no hepatosplenomegaly Skin: no rashes, warm and dry Psychiatric: A+Ox3, euthymic affect Results & Data Results & Data Vital Signs (Past 12 Hours) Vital Signs Temp Pulse Pulse Resp BP Pulse Ox O2 Del Method 07/10/22 08:09 36.3 C L 65 16 128/73 99 Room Air 07/10/22 04: 36.2 C L 60 18 102/58 L 92 Room Air 07/09/22 22:00 60 07/10/22 00:16 36.5 C 60 18 119/65 93 Room Air Laboratory Results Abnormal lab results 07/09/22 07/10/22 07/10/22 Range/Units 14:10 07:31 07:31 WBC 14.81 H (4.8-10.8) K/ul RBC 3.21 L (4.70-6.10) M/uL Hgb 10.4 L (14.0-18.0) g/dl Hct 32.1 L (42.0-52.0) % RDW Std Deviation 50.3 H (36.4-46.3) fL Neut # (Auto) 11.89 H (1.40-6.50) K/uL Lymph # (Auto) 1.12 L (1.2-3.4) K/uL [place] # (Auto) 1.67 H (0.11-0.59) K/uL BUN 27 H 30 H (6-23) mg/dl BUN/Creatinine Ratio 23.8 H (10-20) Glucose 183 H (70-99(Fasting)) mg/dl Calcium 8.2 L (8.6-10.3) mg/dl PG Care Time/CCT Total # of Minutes Spent Total Time Spent with Patient: Total time spent is greater than 50% in coordination of care (as documented) at patient's floor/unit and/or counseling patient: Coding Level of Care Code 14927 SUB INP/OBS CARE 04/09MIN Diagnoses Degenerative joint disease of right hip M16.11 CAD (coronary artery disease) I25.10 Associated angina: without angina Coronary Disease-Associated Artery/Lesion type: [place] artery [place] vs. transplanted heart: [place] heart Paroxysmal A-fib I48.0 Lower urinary tract symptoms (LUTS) R39.9 (2) CAD (coronary artery disease) Associated angina: without angina Coronary Disease-Associated Artery/Lesion type: [place] artery [place] vs. transplanted heart: [place] heart Qualified Code(s): I25.10 - Atherosclerotic heart disease of [place] coronary artery without angina pectoris
[2022-07-10] MEDS: ACETAMINOPHEN 500 MG TAB PO SCH (09:02)
[2022-07-10] MEDS: MULTIVITAMIN TAB PO SCH (10:05)
--- NOTE | 2022-07-10 10:37 | Progress Notes ---
DATE OF SERVICE: 07/10/2022. SUBJECTIVE: An 87-year-old gentleman, postoperative day 1 from a right total hip replacement. He is doing remarkably well. He denies any significant pain. Denies any chest pain or shortness of breat h. Not feeling dizzy or lightheaded. He is hoping to go home. OBJECTIVE: VITAL SIGNS: Temperature 36.3. Vital signs are stable. GENERAL: Shows a pleasant, elderly male. He is sitting up in his bedside chair, looks completely co mfortable. EXTREMITIES: Examination of the right hip reveals dressing to be clean, dry and intact. Leg lengths are equal. He can dorsiflex and plantarflex his foot appropriately. He is neurologically intact. LABORATORY DATA: Hemoglobin 10.4. Hematocrit 32.1. Electrolytes are stable. ASSESSMENT: An 87-year-old gentleman with multiple medical comorbidities postoperative day 1 from ri ght total hip replacement, doing remarkably well. He appears completely stable. Pain is controlled. Hip is located. He is neurologically intact. PLAN: 1. DVT prophylaxis including thigh-high TEDs, SCDs, and he is back on his Eliquis at his standard do se starting today. 2. PT/OT, weightbear as tolerated. Right total hip protocol. 3. Pain control, doing okay with current pain regimen. 4. Disposition: Plan to discharge to home with some home health, as long as he does okay in therapy . Job ID: [id number]
--- NOTE | 2022-07-12 15:32 | Discharge Summary ---
Date of Service July 12, 2022 Discharge Data Consultations 07/09/22 10:38 Consult Internal Medicine Routine Procedures Performed Operation Date: 07/09/22 07:00 Actual Procedures p Right Total Hip Arthroplasty(Right) - Mao Green MD Hospital Course (1) S/P total right hip arthroplasty: This is a 87 year old patient admitted on 07/09/22 and underwent total hip arthroplasty. He tolerated the procedure well and there were no complications. Transferred to the PACU post op and later to the orthopedic floor for further care. He was given ancef for antibiotic prophylaxis. He was also given KARL stockings, SCDs, and eliquis for DVT prophylaxis. Hemoglobin, hematocrit, and vital signs were monitored during his hospital stay and remained stable. Did not require any blood transfusions. There were no complications during his hospital stay. The Hospitalist service was consulted and followed him during his hospital stay. By post op day #1 the patient was tolerating a regular diet, pain was reasonably controlled with oral pain medicine, and he was participating in physical therapy. On post op day #1 the patient was discharged to a rehab facility. He was given printed discharge instructions including prescriptions for extra strength tylenol, zofran, senokot,, and tramadol. Continue physical therapy, weight bearing as tolerated. Continue KARL stockings. Continue hip precautions. Follow up approximately 2 weeks post op or sooner if there are problems or concerns. Coding Level of Care Code None Diagnoses S/P total right hip arthroplasty Z96.641
== END 2022-07-10 13:15 ==
LOC: ASU 05:08 → 2W 05:08 → SUATTDRO 08:32 → UNDODISOB 07-10 13:15